=== PATIENT | female | born 1985 | race African-American/Black ===

== ENCOUNTER 2016-08-06 14:14 | Emergency (ER) | payer SELFPAY ==
[2016-08-06] MEDS ORDERED: predniSONE 20 MG TAB ONE (14:38)
== END 2016-08-06 14:50 | disposition home or self-care (01) ==
LOC: NAV ERS 14:14
DX: T63.481A Toxic effect of venom of other arthropod, accidental (unintentional), initial encounter (principal)
CPT/HCPCS: 99282; J7506

== ENCOUNTER 2017-03-23 18:57 | Emergency (ER) | payer BC, SELFPAY ==
[2017-03-23] MEDS ORDERED: Ibuprofen 800 MG TAB ONE (19:21)
--- NOTE | 2017-03-23 20:01 | RAD ---
LEFT ANKLE THREE VIEWS: 03/23/17 HISTORY: Injury, left ankle pain. FINDINGS/IMPRESSION: The ankle mortise is maintained. No acute fracture or dislocation is identified. POS: DOV
== END 2017-03-23 19:56 | disposition home or self-care (01) ==
LOC: NAV ERS 18:57
DX: S93.402A Sprain of unspecified ligament of left ankle, initial encounter (principal); X50.9XXA Other and unspecified overexertion or strenuous movements or postures, initial encounter

== ENCOUNTER 2017-07-21 20:19 | Emergency (ER) | payer BC ==
--- NOTE | 2017-07-21 20:52 | RAD ---
THREE VIEWS OF THE LEFT ANKLE: 07/21/17 INDICATION: Left ankle sprain a couple of months ago with persistent pain. FINDINGS: No acute fracture or subluxation is evident. Soft tissue swelling seen involving the left ankle on e prior examination is significantly reduced. IMPRESSION: No acute osseous abnormality. POS: [facility]
== END 2017-07-21 21:37 | disposition home or self-care (01) ==
LOC: NAV ERS 20:19
DX: S93.402D Sprain of unspecified ligament of left ankle, subsequent encounter (principal); X50.1XXD Overexertion from prolonged static or awkward postures, subsequent encounter

== ENCOUNTER 2020-11-01 17:40 | Emergency (ER) | payer BC | END 2020-11-01 19:10 | disposition home or self-care (01) | LOC: NAV ERS 17:40 | DX: U07.1 COVID-19 (principal) | CPT/HCPCS: 99283 ==